=== PATIENT | male | born 1985 | race Caucasian/White ===

== ENCOUNTER 2017-02-18 00:42 | Inpatient (IN) | payer OTHER ==
[~2017-02-18] VITALS: Ht 177.8 cm; Wt 84.0 kg
[2017-02-18 00:46] VITALS: Ht 177.8 cm; Wt 84.0 kg
[2017-02-18 02:05] LABS: URINE BLOOD (Dip) POC Negative (NEGATIVE)
[2017-02-18] MEDS ORDERED: SOD CHLORIDE 0.9% 1,000 ML IV STA (02:05)
[2017-02-18] MEDS ORDERED: morphine 2 MG INJ IV STA (02:05)
[2017-02-18] MEDS ORDERED: ONDANSETRON 4 MG INJ IV STA (02:05)
[2017-02-18 02:21] LABS: ADD SCAN DIFF NO
[2017-02-18 02:24] LABS: BASOPHILS % 0.3 % (0.0-2.0); EOSINOPHILS # 0.1 10^3/ul (0.0-0.5); EOSINOPHILS % 0.6 % (0.0-7.0); HEMATOCRIT 41.7 % (42.0-52.0); LYMPHOCYTES # 1.6 10^3/ul (0.8-2.9); MEAN CORPUSCULAR HEMOGLOBIN 27.2 pg (29.0-33.0); MEAN CORPUSCULAR HGB CONC 33.6 g/dl (32.0-37.0); MEAN CORPUSCULAR VOLUME 81.1 fl (82.0-101.0); MEAN PLATELET VOLUME 10.5 fl (7.4-10.4); MONOCYTE # 0.8 10^3/ul (0.3-0.9); MONOCYTES % 5.7 % (0.0-11.0); NEUTROPHIL # 11.8 10^3/ul (1.6-7.5); NEUTROPHILS % 82.1 % (39.0-77.0); PLATELET COUNT 248 10^3/UL (140-415); RED BLOOD COUNT 5.14 10^6/ul (4.70-6.10); RED CELL DISTRIBUTION WIDTH 11.9 % (11.5-14.5); WHITE BLOOD COUNT 14.4 10^3/ul (4.8-10.8)
[2017-02-18 02:34] LABS: ADD UMIC YES; UR ASCORBIC ACID NEGATIVE (NEGATIVE); UR BILIRUBIN (Dip) NEGATIVE (NEGATIVE); UR BLOOD (Dip) NEGATIVE (NEGATIVE); UR CLARITY CLEAR (CLEAR); UR COLOR YELLOW (YELLOW); UR GLUCOSE (Dip) NEGATIVE (NEGATIVE); UR KETONES (Dip) 1+ mg/dL (NEGATIVE); UR LEUKOCYTE ESTERASE (Dip) NEGATIVE Leu/ul (NEGATIVE); UR NITRITE (Dip) NEGATIVE (NEGATIVE); UR RBC 1 /HPF (0-5); UR SPECIFIC GRAVITY (Dip) 1.021 (1.003-1.030); UR TOTAL PROTEIN (Dip) 1+ mg/dl (NEGATIVE); UR UROBILINOGEN (Dip) NEGATIVE (NEGATIVE)
[2017-02-18 02:44] LABS: ALBUMIN 5.1 g/dl (3.3-4.9); ALBUMIN/GLOBULIN RATIO 1.82; BILIRUBIN,INDIRECT 1.2 mg/dl (0-1.1); BILIRUBIN,TOTAL 1.2 mg/dl (0.2-1.3); CALCIUM 9.7 mg/dl (8.4-10.2); CREATININE 0.85 mg/dl (0.61-1.24); POTASSIUM 4.2 mmol/L (3.5-5.1); TOTAL PROTEIN 7.9 g/dl (6.1-8.1)
[2017-02-18] MEDS ORDERED: morphine 4 MG/ML VIAL IV STA ×2 (03:41→06:14)
--- NOTE | 2017-02-18 03:42 | RADRPT ---
PROCEDURE: XR Abdomen. CLINICAL INDICATION: Abdominal pain TECHNIQUE: Upright and supine abdominal x-rays were obtained. COMPARISON: None. FINDINGS: The bowel gas pattern is normal. There is no evidence of obstruction. There are no definite air-flui d levels. There are no abnormal calcifications overlying the urinary tracts. The soft tissues are unremarkable. There is no free intraperitoneal air. The osseus structures are unremarkable. RPTAT: AA IMPRESSION: Unremarkable abdomen radiographs. .Huang Valiente MD, MD Date Time Electronically viewed and signed by .Huang Valiente MD, MD on 02/18/2017 03:41 .S/
--- NOTE | 2017-02-18 05:42 | RADRPT ---
PROCEDURE: CT ABDOMEN/PELVIS WITHOUT CONTRAST CLINICAL INDICATION: 31-year-old male with periumbilical abdominal pain. TECHNIQUE: The study was performed utilizing a GE LETSGRO[employer]peed VCT 64-slice CT scanner. Direct axia l sections were obtained through the abdomen and pelvis without the use of intravenous contrast mate rial. Sagittal and coronal reformations were obtained. One or more of the following dose reduction t echniques were utilized: automated exposure control, adjustment of the mA and/or kV according to pat ient's size or use of iterative reconstruction technique. The images were reviewed on a PACS workst at[employer]Crossing. CTD/vol = 12.7 mGy; Total Exam DLP = 796.9 mGy-cm. COMPARISON: None. FINDINGS: There is trace bibasilar subsegmental atelectasis. There is no evidence for significant pleural eff usion. The liver has a normal size and contour without focal areas of abnormal density. No intrahep atic nor extrahepatic biliary ductal dilatation is seen. The gallbladder demonstrates no wall thicke glen nor pericholecystic fluid. No biliary stones are evident. The pancreas is without areas of abno rmal attenuation. The spleen is identified and has a normal size without abnormal density. The adre nal glands are unremarkable. The kidneys are without abnormal density. No hydroureteronephrosis nor nephroureterolithiasis is evident. The urinary bladder contains urine. There is no evidence for brenda l obstruction. The appendix is diffusely thickened measuring 9 mm with minimal periappendiceal infl ammatory changes suggestive of early acute appendicitis. There is no significant free fluid. There are small bilateral inguinal hernias containing fat. The aortoiliac vessels are without aneurysmal dilatation. The osseous structures are intact. IMPRESSION: 1. Diffusely thickened appendix measuring 9 mm with minimal surrounding inflammatory changes most s uggestive of early acute appendicitis. 2. Small bilateral inguinal hernias containing fat. CRITICAL RESULTS: A call report was made to [facility] ER Dr. Kinney on February 18, 2017 at 05:36 a.m. .Christopher Velazquez MD, MD Date Time Electronically viewed and signed by .Christopher Velazquez MD, MD on 02/18/2017 05:42 .Saurabh
--- NOTE | 2017-02-18 05:46 | ERA ---
ER Documentation Chief Complaint Date/Time DATE: 02/18/17 TIME: 05:42 Chief Complaint lower abd pain since 8 hours ago HPI This 31-year-old male presents for periumbilical abdominal pain and spread to his lower quadrant about 8 hours ago. He has had some nausea and an episode of vomiting. He has never had pain like this before. He has had chills but denies fevers. Denies diarrhea. Has no history of abdominal surgery and is otherwise healthy. ROS All systems reviewed and are negative except as per history of present illness. Allergies Allergies: Coded Allergies: No Known Allergy (Unverified , 02/18/17) PMhx/Soc Medical and Surgical Hx: pt denies Medical Hx, pt denies Surgical Hx Hx Alcohol Use: No Hx Substance Use: No Hx Tobacco Use: Yes Smoking Status: Current some day smoker Physical Exam Vitals Vital Signs Date Time Temp Pulse Resp B/P Pulse Ox O2 Delivery O2 Flow Rate FiO2 02/18/17 03:11 70 16 115/97 100 Room Air 02/18/17 00:46 98.3 99 20 131/72 98 Physical Exam Const: [] Mild distress, appears uncomfortable Head: Atraumatic Eyes: Normal Conjunctiva ENT: Normal External Ears, Nose and Mouth. Neck: Full range of motion..~ No meningismus. Resp: Clear to auscultation bilaterally Cardio: Regular rate and rhythm, no murmurs Abd: Soft, moderate periumbilical tenderness with mild voluntary guarding, moderate right lower quadrant tenderness, non distended. Normal bowel sounds Skin: No petechiae or rashes Back: No midline or flank tenderness Ext: No cyanosis, or edema Neur: Awake and alert and oriented 3, no focal deficits Psych: Normal Mood and Affect Result Diagram: 02/18/17 0210 02/18/17 0210 Results 24 hrs Laboratory Tests Test 02/18/17 02:00 02/18/17 02:08 02/18/17 02:10 Urine Color YELLOW Urine Clarity CLEAR Urine pH 9.0 Urine Specific [place] 1.021 Urine Ketones 1+mg/dL Urine Nitrite NEGATIVEmg/dL Urine Bilirubin NEGATIVEmg/dL Urine Urobilinogen NEGATIVEmg/dL Urine Leukocyte Esterase NEGATIVELeu/ul Urine Microscopic RBC 1/HPF Urine Microscopic WBC 1/HPF Urine Hemoglobin NEGATIVEmg/dL Urine Glucose NEGATIVEmg/dL Urine Total Protein 1+mg/dl Bedside Urine pH (LAB) >=9.0 Bedside Urine Protein (LAB) 3+ Bedside Urine Glucose (UA) Negative Bedside Urine Ketones (LAB) 2+ Bedside Urine Blood Negative Bedside Urine Nitrite (LAB) Negative Bedside Urine Leukocyte Esterase (L Negative White Blood Count 14.410^3/ul Red Blood Count 5.1410^6/ul Hemoglobin 14.0g/dl Hematocrit 41.7% Mean Corpuscular Volume 81.1fl Mean Corpuscular Hemoglobin 27.2pg Mean Corpuscular Hemoglobin Concent 33.6g/dl Red Cell Distribution Width 11.9% Platelet Count 05536^3/UL Mean Platelet Volume 10.5fl Neutrophils % 82.1% Lymphocytes % 11.0% Monocytes % 5.7% Eosinophils % 0.6% Basophils % 0.3% Nucleated Red Blood Cells % 0.0/100WBC Neutrophils # 11.810^3/ul Lymphocytes # 1.610^3/ul Monocytes # 0.810^3/ul Eosinophils # 0.110^3/ul Basophils # 0.010^3/ul Nucleated Red Blood Cells # 0.010^3/ul Sodium Level 140mmol/L Potassium Level 4.2mmol/L Chloride Level 101mmol/L Carbon Dioxide Level 27mmol/L Anion Gap 16 Blood Urea Nitrogen 14mg/dl Creatinine 0.85mg/dl Glucose Level 120mg/dl Calcium Level 9.7mg/dl Total Bilirubin 1.2mg/dl Direct Bilirubin 0.00mg/dl Indirect Bilirubin 1.2mg/dl Aspartate Amino Transf (AST/SGOT) 139IU/L Alanine Aminotransferase (ALT/SGPT) 111IU/L Alkaline Phosphatase 77IU/L Total Protein 7.9g/dl Albumin 5.1g/dl Globulin 2.80g/dl Albumin/Globulin Ratio 1.82 Lipase 81U/L Current Medications Medications (Trade) Dose Ordered Sig/Miriam Route PRN Reason Start Time Stop Time Status Last Admin Dose Admin Sodium Chloride (NS) 1,000 ml @ 1,000 mls/hr Q1H STAT IV 02/18/17 02:05 02/18/17 03:04 DC 02/18/17 02:17 Morphine Sulfate (morphine) 2 mg ONCE STAT IV 02/18/17 02:05 02/18/17 02:07 DC 02/18/17 02:17 Ondansetron HCl (Zofran Inj) 4 mg ONCE STAT IV 02/18/17 02:05 02/18/17 02:07 DC 02/18/17 02:18 Morphine Sulfate 4 mg 4 mg ONCE STAT IV 02/18/17 03:41 02/18/17 03:42 DC 02/18/17 04:13 Piperacillin Sod/ Tazobactam Sod (Zosyn 3.375gm/ 100 ml (Pmx)) 100 ml @ 200 mls/hr ONCE ONCE IVPB 02/18/17 06:00 02/18/17 06:29 Procedures/MDM 31-year-old male with acute appendicitis. Hydrated with 2 L of normal saline. Treated with morphine 2 doses in order to control his pain. Also given Zofran which helped reduce his nausea but not completely relieve it. Does have leukocytosis without fever or signs of sepsis. 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 Mild increased LFTs. Patient will be admitted to the medical surgical floor for further management. Spoke with Dr. Rivas who will be managed in the case surgically. CT abdomen pelvis interpretation dilated thickened appendix 9 mm with mild surrounding inflammatory changes consistent with early appendicitis. No intestinal obstruction, no free air, no fractures mild Departure Diagnosis: Primary Impression: Acute appendicitis Condition: Serious JACINTO CASTRO DO Feb 18, 2017 05:46
[2017-02-18] MEDS ORDERED: PIPER-TAZO 3.375 GM IV (PMX) 100 ML IVPB ONE (06:00)
[2017-02-18] MEDS ORDERED: ONDANSETRON 4 MG INJ IV PRN (06:30)
[2017-02-18] MEDS ORDERED: ACETAMINOPHEN 325 MG TAB PO PRN ×2 (06:30→08:30)
[2017-02-18] MEDS ORDERED: SOD CHLORIDE 0.9% 1,000 ML IV ONE (06:30)
[2017-02-18 07:20] VITALS: TEMP 99.4
[2017-02-18 07:29] LABS: INR 0.87; PROTIME 11.8 Sec (12.2-14.2); PT RATIO 0.9
[2017-02-18 07:30] LABS: PARTIAL THROMBOPLASTIN TIME 23.9 Sec (25.0-35.0)
[2017-02-18] MEDS ORDERED: HYDROmorphONE 1 MG/ML SYG IV PRN (08:30)
[2017-02-18] MEDS ORDERED: NACL 0.9% 3 ML SYG IV SCH (08:30)
[2017-02-18] MEDS ORDERED: DOCUSATE SODIUM 100 MG CAP PO PRN (08:30)
[2017-02-18 08:35] VITALS: BP 109/61; PULSE 80; RESP 20
--- NOTE | 2017-02-18 08:36 | HP ---
Date/Time of Note Date/Time of Note DATE: 02/18/17 TIME: 08:30 Assessment/Plan VTE Prophylaxis VTE Prophylaxis Intervention: other Assessment/Plan Problems: (1) Abdominal pain Status: Acute Comment: He has been seen in surgical consultation by Dr. Bonner. Dr. Bonner feels that based on the presentation information that this is not absolutely classical for acute appendicitis. He wishes to observe the patient. I am in agreement with that and he will be admitted to the hospital and observed overnight. Qualifiers: Abdominal location: right lower quadrant Qualified Code: R10.31 - Right lower quadrant abdominal pain (2) Abnormal finding on urinalysis Status: Acute Comment: Or findings of protein on the urinalysis. I will simply repeat urinalysis to make sure that there is not a red whitlock. If the proteinuria persists and he will need a 24-hour urine for total protein and possibly need additional evaluation. This would be unrelated to the chief complaint of brought him into the hospital. (3) Elevated liver enzymes Status: Acute Comment: There is no prior history of this. It may represent the issue that brought him into the hospital is quite possible he has mesenteric adenitis. However we will check an acute hepatitis panel (4) Bilateral inguinal hernia Status: Chronic Comment: These were small and noted on the CT scan of the abdomen. They do not need intervention at this moment Qualifiers: Obstruction and gangrene presence: without obstruction or gangrene Recurrence: not specified as recurrent Qualified Code: K40.20 - Bilateral inguinal hernia without obstruction or gangrene, recurrence not specified HPI/ROS Admit Date/Time Admit Date/Time 02/18/2017 Hx of Present Illness Baron 31-year-old Faro[place] gentleman came into the emergency room with complaint of abdominal pain he generally has been in good health, however he does note intermittent bouts of abdominal pain that have been short-lived roughly half an hour. He was in his usual state of health and had eaten part of a dinner meal when he had the onset of abdominal pain which located down to the right lower quadrant. Ultimately because it did not relent he presented to the emergency room. He was treated with morphine 2 there the last being the time being 4-1/2 hours before I evaluated the patient. He denies any fevers chills or sweats. Denied any nausea or vomiting. He has no history of melena bright red blood per rectum denies any symptoms consistent with inflammatory bowel disease. There is no known specific history of inflammatory bowel disease in the family. He is not routinely under medical care and is otherwise in good health. ROS Constitutional: no complaints (No fevers chills or sweats) Eyes: no complaints ENT: no complaints Respiratory: no complaints Cardiovascular: no complaints Gastrointestinal: pain (This has resolved) Genitourinary: no complaints Musculoskeletal: no complaints Skin: no complaints Neurologic: no complaints Endocrine: no complaints Lymphatic: no complaints Psychological: no complaints PMH/Family/Social Past Medical History Medical History: no pertinent history (Otherwise in good health with some possible allergic rhinitis. Has occasional headaches which are not consistent with migraine) Past Surgical History Past Surgical Hx: no surgical history Family History Significant Family History: diabetes, hypertension Social History Born in [facility] lives in [facility] for 3 and half years. for 3 years. Has a bachelor's degree. Lives with his spouse. Alcohol Use: occasionally Smoking Status: Current some day smoker Drug Use: none Exam/Review of Systems Vital Signs Vitals Vital Signs Date Time Temp Pulse Resp B/P Pulse Ox O2 Delivery O2 Flow Rate FiO2 02/18/17 07:20 99.4 94 18 112/76 100 Room Air Exam Constitutional: alert, oriented Psych: nl mood/affect, no complaints Head: atraumatic, normocephalic Eyes: EOMI, nl conjunctiva, nl lids, nl sclera ENMT: mucosa pink and moist, nl external ears & nose, nl lips & teeth, nl nasal mucosa & septum Neck: non-tender, supple Respiratory: clear to auscultation, normal air movement Cardiovascular: nl pulses, regular rate and rhythm Gastrointestinal: nl liver, spleen, non-tender (Please note he has no tenderness at all at this time. 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
--- NOTE | 2017-02-18 09:11 | CONS ---
[facility] INITIAL INPATIENT CONSULTATION NOTE DATE OF CONSULTATION: 02/18/2017 PLACE OF SERVICE: [facility] preoperative area. ASSESSMENT AND PLAN: A very pleasant 31-year-old gentleman with comorbidities of BMI 26.6, daily cigarette smoker, history of reported gallbladder polyp, and bilateral small fat containing inguinal hernias presenting with abdominal pain of unclear etiology in the setting of a vague history of bloating, especially after eating. The patient does not have classic picture of acute appendicitis, and if anything, this would be extremely early appendicitis. Given his discordance between clinical exam and the relative minor findings on the CT scan , I recommended that we change our plans from emergency surgery to remove the appendix to that of careful observation in house overnight and possible surgery if the patient has more clear signs of acute appendicitis. The risk to the patient is certainly low with this approach, and we are still carefully monitoring him in the hospital. We may also want to consider involving other specialties such as gastroenterology to evaluate him for possible inflammatory bowel disease, although his workup can certainly be done as an outpatient as well. 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 I answered all of their questions to the best of my ability, and I believe that they understood and agreed with the plans. With above assessment, I have recommended the followin. Keep in house. 2. Careful monitoring of vital signs and I's and O's. 3. Okay for patient to have a regular diet for now. 4. Check labs in a.m. 5. Consider gastroenterology consultation 6. Possible need for surgery if the patient does not improve. Thank you again for allowing us to participate in the care of this very pleasant gentleman and his wonderful family. If there are any questions, please feel free to contact me at [phone]. UPDATED CLINICAL SUMMARY: A very pleasant 31-year-old young gentleman with comorbidity of BMI 26.6 admitted through the emergency department at [facility] on 02/18/2017 with suspicion of acute appendicitis. COMORBIDITIES: 1. BMI 26.6. 2. History of abdominal bloating. 3. Current smoker, daily. 4. History of gallbladder polyps, evaluated per patient's report by a physician and was told not to need any intervention. DATE OF ADMISSION: 02/18/2017 HISTORY OF PRESENT ILLNESS: The patient is a very pleasant 31-year-old gentleman with above-mentioned comorbidities for whom we were contacted through the emergency department early this morning regarding concerns for acute appendicitis. He had presented with a few hour history of abdominal pain which he described as a diffuse lower abdominal discomfort associated with a bit of nausea and 2 episodes of nonbloody vomiting but no localization to right or left and no radiation. No fevers or chills. He did mention having diarrhea yesterday. He also has a history of abdominal bloating which is exacerbated every few weeks. There is also a history of diarrhea and bloating. There is a history of bloating issues with family without any obvious or known diagnosis of Crohn's disease or ulcerative colitis. The patient had an afebrile state in the emergency department, and his vital signs were otherwise stable. Showed a white blood cell count of 14.4 with a neutrophil percentage of 82.1%. CT scan of abdomen and pelvis on 02/18/2017 was obtained which showed diffusely thickened appendix measuring 9 mm with minimal surrounding inflammatory changes most suggestive of early acute appendicitis and small bilateral inguinal hernias containing fat. During my examination of the patient, and the patient did not have any abdominal pain, and he had received 2 doses of morphine last night and none for the last number of hours. He had no other major complaints. ALLERGIES: NO KNOWN DRUG ALLERGIES. MEDICATIONS: None at home. SOCIAL HISTORY: The patient is and lives with his . 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 FAMILY HISTORY: No mention of major medical, surgical, or oncologic problems in the family other than the above-mentioned, vague symptoms of bloating after eating. REVIEW OF SYSTEMS: Other than the above-mentioned, there are no other pertinent positives or pertinent negatives in a complete 14-point review of systems. PHYSICAL EXAMINATION: GENERAL: The patient appears to be a very pleasant gentleman of /[place] descent, appearing stated age, lying in bed comfortably and in no acute distress. BMI is 26.6. VITAL SIGNS: Temperature 99.4, blood pressure 112/76, pulse 94, respiratory rate 18, pulse oximetry 100% on room air. HEENT: Normocephalic and atraumatic. Extraocular muscles and hearing are grossly intact bilaterally and symmetrically. Sclerae are nonicteric. Oral cavity is clear; oral mucosa appeared to be pink and moist. Dentition: fair. NECK: Supple. There is no lymphadenopathy or JVD. There is no submental, submandibular or supraclavicular lymphadenopathy. CHEST: Rises symmetrically with each breath; patient is breathing comfortably. There are no audible wheezes, rales or rhonchi on the gross exam. HEART: Pulse is regular and palpable on the right wrist. Capillary refill was normal. Carotid pulses are palpable bilaterally and symmetrically in the neck. EXTREMITIES: Lower extremities contain no pitting edema around the ankles bilaterally and symmetrically. ABDOMEN: Soft, nondistended, and nontender. Deep palpation in the right lower quadrant did not elicit any tenderness. There is no evidence of organomegaly, caput medusae, engorged subcutaneous veins, or ascites. There are no peritoneal signs or guarding. SKIN: Appears to be pink and feels warm to touch. NEUROLOGIC: Awake, alert, and follows commands appropriately. LABORATORY DATA: White blood cell count 14.4, hemoglobin 14, platelets 248. Electrolytes are normal, creatinine 0.85, CO2 27, total bilirubin 1.2, AST 139, ALT 111, alkaline phosphatase 77, albumin 5.1, lipase 81. INR 0.87. Urinalysis showed no nitrite and no leukocyte esterase. IMAGING: Abdominal x-ray showed unremarkable findings. CT scan of the abdomen and pelvis was reviewed above. Note that I personally reviewed all the available and pertinent images, and I agree in general with their overall reported findings. Dictated By: SERGIO MILLAN/RIAZ Conf#: [id number] DID#: [id number] MTDD
[2017-02-18] MEDS: FAMOTIDINE 20 MG TAB PO SCH ×2 (09:12→21:12)
[2017-02-18 13:12] LABS: HAAIG REFLEX REFLEX FILED
[2017-02-18] MEDS: PIPER-TAZO 3.375 GM IV (PMX) 100 ML IVPB SCH ×2 (13:47→21:12)
[2017-02-18 13:51] LABS: ADD SCAN DIFF NO
[2017-02-18 14:05] LABS: BASOPHILS % 0.4 % (0.0-2.0); EOSINOPHILS # 0.1 10^3/ul (0.0-0.5); EOSINOPHILS % 1.4 % (0.0-7.0); HEMATOCRIT 39.1 % (42.0-52.0); HEMOGLOBIN 12.6 g/dl (14.0-18.0); LYMPHOCYTES # 2.4 10^3/ul (0.8-2.9); LYMPHOCYTES % 25.1 % (15.0-51.0); MEAN CORPUSCULAR HEMOGLOBIN 26.3 pg (29.0-33.0); MEAN CORPUSCULAR HGB CONC 32.2 g/dl (32.0-37.0); MEAN CORPUSCULAR VOLUME 81.5 fl (82.0-101.0); MEAN PLATELET VOLUME 10.6 fl (7.4-10.4); MONOCYTE # 0.7 10^3/ul (0.3-0.9); MONOCYTES % 7.8 % (0.0-11.0); NEUTROPHIL # 6.2 10^3/ul (1.6-7.5); NEUTROPHILS % 65.1 % (39.0-77.0); PLATELET COUNT 227 10^3/UL (140-415); RED CELL DISTRIBUTION WIDTH 12.2 % (11.5-14.5); WHITE BLOOD COUNT 9.5 10^3/ul (4.8-10.8)
[2017-02-18 14:12] LABS: HEPATITIS B CORE ANTIBODY REACTIVE (NEGATIVE)
[2017-02-18] MEDS: DEXTROSE 5%-LR 1,000 ML IV SCH (15:20)
[2017-02-18 16:02] LABS: ADD UMIC NO; UR ASCORBIC ACID NEGATIVE (NEGATIVE); UR BILIRUBIN (Dip) NEGATIVE (NEGATIVE); UR BLOOD (Dip) NEGATIVE (NEGATIVE); UR CLARITY CLEAR (CLEAR); UR COLOR YELLOW (YELLOW); UR GLUCOSE (Dip) NEGATIVE (NEGATIVE); UR KETONES (Dip) NEGATIVE (NEGATIVE); UR LEUKOCYTE ESTERASE (Dip) NEGATIVE Leu/ul (NEGATIVE); UR NITRITE (Dip) NEGATIVE (NEGATIVE); UR SPECIFIC GRAVITY (Dip) 1.015 (1.003-1.030); UR TOTAL PROTEIN (Dip) NEGATIVE (NEGATIVE); UR UROBILINOGEN (Dip) NEGATIVE (NEGATIVE)
[2017-02-18 18:58] VITALS: BP 108/62; RESP 16
[2017-02-19] MEDS: DEXTROSE 5%-LR 1,000 ML IV SCH ×2 (04:20→17:40)
[2017-02-19] MEDS: PIPER-TAZO 3.375 GM IV (PMX) 100 ML IVPB SCH ×2 (05:12→13:36)
[2017-02-19 05:23] LABS: ADD SCAN DIFF NO
[2017-02-19 05:28] LABS: BASOPHIL # 0.1 10^3/ul (0.0-0.1); BASOPHILS % 0.7 % (0.0-2.0); EOSINOPHILS # 0.2 10^3/ul (0.0-0.5); EOSINOPHILS % 2.7 % (0.0-7.0); HEMATOCRIT 38.3 % (42.0-52.0); HEMOGLOBIN 12.3 g/dl (14.0-18.0); LYMPHOCYTES # 2.6 10^3/ul (0.8-2.9); LYMPHOCYTES % 36.4 % (15.0-51.0); MEAN CORPUSCULAR HEMOGLOBIN 26.6 pg (29.0-33.0); MEAN CORPUSCULAR HGB CONC 32.1 g/dl (32.0-37.0); MEAN CORPUSCULAR VOLUME 82.7 fl (82.0-101.0); MONOCYTE # 0.6 10^3/ul (0.3-0.9); MONOCYTES % 8.8 % (0.0-11.0); NEUTROPHIL # 3.6 10^3/ul (1.6-7.5); NEUTROPHILS % 51.3 % (39.0-77.0); PLATELET COUNT 204 10^3/UL (140-415); RED BLOOD COUNT 4.63 10^6/ul (4.70-6.10); RED CELL DISTRIBUTION WIDTH 12.5 % (11.5-14.5)
[2017-02-19 05:49] LABS: ALBUMIN 4.2 g/dl (3.3-4.9); ALBUMIN/GLOBULIN RATIO 1.75; BILIRUBIN,INDIRECT 1.4 mg/dl (0-1.1); BILIRUBIN,TOTAL 1.4 mg/dl (0.2-1.3); CALCIUM 9.3 mg/dl (8.4-10.2); CREATININE 0.87 mg/dl (0.61-1.24); TOTAL PROTEIN 6.6 g/dl (6.1-8.1)
[2017-02-19 07:58] VITALS: BP 97/55; RESP 16
[2017-02-19] MEDS: FAMOTIDINE 20 MG TAB PO SCH ×2 (08:34→20:28)
--- NOTE | 2017-02-19 11:37 | PDOCDIS ---
Discharge Instructions DIAGNOSIS Discharge Diagnosis Abdominal Pain CONDITION Patient Condition: Good HOME CARE INSTRUCTIONS: Diet Instructions: Regular ACTIVITY: Activity Restrictions: Slowly Increase Activity Rest between Activity Avoid heavy lifting Bathing Restrictions: Shower FOLLOW UP/APPOINTMENTS Follow-up Plan Follow-up with primary care physician as outpatient Follow up with general surgery as outpatient HOLGER LASSITER MD Feb 19, 2017 11:36
[2017-02-19] MEDS ORDERED: FAMO20TA18 PO (11:38)
[2017-02-19] MEDS ORDERED: CEPH500C PO (11:38)
--- NOTE | 2017-02-19 12:49 | PN ---
Date/Time of Note Date/Time of Note DATE: 02/19/17 TIME: 12:46 Assessment/Plan Lines/Catheters IV Catheter Type (from Nrs): Peripheral IV Assessment/Plan Assessment/Plan [facility] Progress Note Date of Service: 02/19/17 Today's Impression & Plan: Overall stable. No major abdominal pain and only bloating as the main complaint. No indication for acute surgical intervention. Since no major surgical issues, will sign off the official chart, but will cont to follow from periphery. With above assessment, I've recommended the following for today: 1. Agree with RUQ US 2. Consider GI consultation 3. Please call me if any acute changes in condition or new surgical issues identified Thank you again for your great care of this very pleasant patient and wonderful family. If there are any questions, please feel free to call me at [phone]. TOTAL VISIT TIME: 20 minutes of which more than half was spent in [id number] discussion with the patient, possibly including family, as well as coordination of care between multiple physicians and providers. Disclaimer: Inadvertent spelling or grammatical errors are likely due to EHR/ dictation software use and do not reflect on the overall quality of patient care. Updated Clinical Summary: A very pleasant 31-year-old young gentleman with comorbidity of BMI 26.6 admitted through the emergency department at [facility] on with suspicion of acute appendicitis. No obvious evidence of acute appendicitis found. COMORBIDITIES: 1. BMI 26.6. 2. History of abdominal bloating. 3. Current smoker, daily. 4. History of gallbladder polyps, evaluated per patient's report by a physician and was told not to need any intervention. Subjective: No major events or complaints; no abd pain and only bloating as the main complaint; no n/v/d; no sob or cp; + flatus; - BM; minimal activity Objective: Vitals: See below Exam: GENERAL: On exam, the patient was laying in bed and appeared to be comfortable and in no acute distress. ABDOMEN: Soft, nontender and nondistended. There are no peritoneal signs or guarding. SKIN: Skin appears to be pink and feels warm to touch. NEUROLOGIC: Patient is awake, alert, and follows commands appropriately. Exam/Review of Systems Vital Signs Vitals Vital Signs Date Time Temp Pulse Resp B/P Pulse Ox O2 Delivery O2 Flow Rate FiO2 02/19/17 07:58 98.4 65 16 97/55 96 02/18/17 08:35 Room Air Intake and Output 02/18/17 02/18/17 02/19/17 15:00 23:00 07:00 Intake Total 100 ml 250 ml 1100 ml Output Total 1000 ml 900 ml Balance 100 ml -750 ml 200 ml Results Result Diagram: 02/19/17 0442 02/19/17 0442 SERGIO WEEMS M.D. Feb 19, 2017 12:49
--- NOTE | 2017-02-19 17:42 | RADRPT ---
PROCEDURE: US Abdomen and Retroperitoneum. CLINICAL INDICATION: Abdominal pain. TECHNIQUE: Multiple real-time longitudinal and transverse images were acquired of the patient's ab domen and retroperitoneum utilizing a curved array transducer. COMPARISON: No prior studies are available for comparison. FINDINGS: The liver is normal in size and normal in echogenicity. The liver has a normal smooth surface. Ther e is no focal hepatic lesion. Color Doppler and pulsed Doppler sonography demonstrate normal antegra de flow in the portal vein. Small polyps are present in the gallbladder neck measuring 0.4 cm and 0.3 cm. There are no gallston es in the gallbladder and there is no gallbladder wall thickening or fluid around the gallbladder. The bile ducts are normal with the common bile duct measuring 4.4 mm in diameter. The spleen is normal in size. There is no focal splenic lesion. The pancreas is partially seen and is unremarkable. There is no free fluid. The right kidney measures 11.4 cm and the left kidney measures 11.6 cm. There is no solid renal mass. There is a benign cyst superiorly in the left kidney measuring 1.2 cm . There is no hydronephrosis or calculus. The abdominal aorta is not dilated. The inferior vena cava is unremarkable. IMPRESSION: 1. Small polyps in the gallbladder neck measuring 0.4 cm and 0.3 cm. Follow-up ultrasound in 6 mon ths advised. 2. No gallstones or evidence of cholecystitis. 3. Benign left renal cyst. 4. Otherwise normal ultrasound abdomen and retroperitoneum. RPTAT: QQ .Kris Dhaliwal MD, MD Date Time Electronically viewed and signed by .Kris Dhaliwal MD, on 02/19/2017 17:42 .R/
[2017-02-19 19:16] VITALS: BP 120/76; RESP 16
--- NOTE | 2017-02-19 19:33 | CONS ---
Date/Time of Note Date/Time of Note DATE: 02/19/17 TIME: 19:25 Assessment/Plan Assessment/Plan Additional Assessment/Plan Assessment: * Mild abnormality liver function tests * Positive hepatitis B core antibody total/will request IgM to assess acuity * At least EtOH abuse moderate * Indirect hyperbilirubinemia rule out Gilbert's syndrome * Gallbladder polyps not clinically significant * Enlarged appendix on imaging/no clinical evidence of appendicitis Plan: * Obtain hepatitis B core antibody IgM * Abstain from alcohol * Monitor liver function tests in 1 month * Avoid hepatotoxins i.e. Tylenol, statins etc. Consultation Date/Type/Reason Admit Date/Time 02/18/2017 Date of Consultation: Feb 19, 2017 Reason for Consultation * Abnormal liver function tests Hx of Present Illness 31-year-old anxious male hospitalized after presenting to the emergency room with significant lower abdominal pain and findings of a enlarged and thickened appendix on CT. Patient was evaluated by Dr. Bonner from the surgical point of view and given the fact that his clinical picture did not fit acute appendicitis no surgery was undertaken. The patient reports that his abdominal pain has completely subsided. A CT and ultrasound also disclose evidence of small gallbladder polyps he is also been found to have slight abnormality liver function test with bilirubin of 1.2 of which all is indirect bilirubin. AST ALT were in the 100 range and have come down slightly. The patient denies risk factors for hepatitis but he is hepatitis serology was positive for hepatitis B core antibody unfortunately IgM antibody has not been assessed. Patient also admits to drinking on a weekly basis several shots of tequila or vodka and also beer throughout the week. At present the patient is comfortable intubating he wishes to go home tonight. I have advised him to complete the blood work which will required further drawing for hepatitis B core IgM antibody and he will also need to set up an appointment with the physician in the outside to be responsible to follow this and I have strongly advised him to discontinue alcohol completely until the situation is clarified. Constitutional: improved, no complaints Eyes: no complaints ENT: no complaints Respiratory: no complaints Cardiovascular: no complaints Gastrointestinal: pain (This has resolved) Genitourinary: no complaints Musculoskeletal: no complaints Skin: no complaints Neurologic: no complaints Endocrine: no complaints Lymphatic: no complaints Psychological: nl mood/affect, no complaints Immunologic: no complaints Past Medical History Medical History: other (Gallbladder polyp) Past Surgical History Past Surgical Hx: no surgical history Family History Significant Family History: no pertinent family hx Social History Alcohol Use: occasionally Smoking Status: Current some day smoker Drug Use: none Exam/Review of Systems Vital Signs Vitals Vital Signs Date Time Temp Pulse Resp B/P Pulse Ox O2 Delivery O2 Flow Rate FiO2 02/19/17 19:16 98.7 60 16 120/76 97 02/18/17 08:35 Room Air Intake and Output 02/18/17 02/18/17 02/19/17 15:00 23:00 07:00 Intake Total 100 ml 250 ml 1100 ml Output Total 1000 ml 900 ml Balance 100 ml -750 ml 200 ml Exam Constitutional: alert, oriented, well developed Psych: nl mood/affect, no complaints Head: atraumatic, normocephalic Eyes: EOMI, PERRL, nl conjunctiva, nl lids, nl sclera ENMT: nl external ears & nose, nl lips & teeth, nl nasal mucosa & septum Neck: non-tender, supple Respiratory: clear to auscultation, normal air movement Cardiovascular: nl pulses, regular rate and rhythm Gastrointestinal: nl liver, spleen, non-tender, soft Musculoskeletal: nl extremities to inspection Extremities: normal pulses Skin: nl turgor, No rash or lesions Lymph: nl lymph nodes Results Result Diagram: 02/19/1744102/19/17441 Results 24 hrs Laboratory Tests Test 02/19/17 04:42 White Blood Count 7.0 # Red Blood Count 4.63 L Hemoglobin 12.3 L Hematocrit 38.3 L Mean Corpuscular Volume 82.7 Mean Corpuscular Hemoglobin 26.6 L Mean Corpuscular Hemoglobin Concent 32.1 Red Cell Distribution Width 12.5 Platelet Count 204 Mean Platelet Volume 11.0 H Neutrophils % 51.3 Lymphocytes % 36.4 Monocytes % 8.8 Eosinophils % 2.7 Basophils % 0.7 Nucleated Red Blood Cells % 0.0 Neutrophils # 3.6 Lymphocytes # 2.6 Monocytes # 0.6 Eosinophils # 0.2 Basophils # 0.1 Nucleated Red Blood Cells # 0.0 Erythrocyte Sedimentation Rate 15 Sodium Level 144 Potassium Level 4.0 Chloride Level 107 Carbon Dioxide Level 26 Anion Gap 15 Blood Urea Nitrogen 10 Creatinine 0.87 Glucose Level 90 Calcium Level 9.3 Total Bilirubin 1.4 H Direct Bilirubin 0.00 Indirect Bilirubin 1.4 H Aspartate Amino Transf (AST/SGOT) 81 H Alanine Aminotransferase (ALT/SGPT) 88 H Alkaline Phosphatase 61 Total Protein 6.6 # Albumin 4.2 Globulin 2.40 Albumin/Globulin Ratio 1.75 Thyroid Stimulating Hormone (TSH) 1.180 Medications Medications Current Medications Acetaminophen (Tylenol Tab) 650 mg Q6H PRN PO PAIN LEVEL 1-3 OR FEVER; Start at 08:30 Hydromorphone HCl (Dilaudid) 0.5 mg Q4H PRN IV SEVERE PAIN LEVEL 7-10; Start at 08:30 Docusate Sodium (Colace) 100 mg Q12H PRN PO CONSTIPATION Last administered on 06:03; Admin Dose 100 MG; Start 02/18/17 at 08:30 Famotidine 20 mg 20 mg Q12 PO Last administered on 02/19/17 08:34; Admin Dose 20 MG; Start 02/18/17 at 09:00 Piperacillin Sod/ Tazobactam Sod 100 ml @ 200 mls/hr Q8 IVPB Last administered on 02/19/17 13:36; Admin Dose 200 MLS/HR; Start 02/18/17 at 14:00 Dextrose/Lactated Ringer's (D5-Lr) 1,000 ml @ 75 mls/hr [id number] IV Last administered on 02/18/17 15:20; Admin Dose 75 MLS/HR; Start 02/18/17 at 15:00 WASHINGTON LACY MD Feb 19, 2017 19:33
[2017-02-20 07:27] VITALS: BP 104/62; RESP 19
[2017-02-20] MEDS: FAMOTIDINE 20 MG TAB PO SCH (09:00)
--- NOTE | 2017-02-20 12:27 | DS ---
Date/Time of Note Date/Time of Note DATE: 02/20/17 TIME: 12:20 Discharge Summary Admission/Discharge Info Admit Date/Time Feb 18, 2017 at 06:10 Discharge Date/Time 02/20/17 Discharge Diagnosis Abdominal Pain Patient Condition: Good Consults President General surgery Procedures None Hx of Present Illness Baron 31-year-old Taj[place] gentleman came into the emergency room with complaint of abdominal pain he generally has been in good health, however he does note intermittent bouts of abdominal pain that have been short-lived roughly half an hour. He was in his usual state of health and had eaten part of a dinner meal when he had the onset of abdominal pain which located down to the right lower quadrant. Ultimately because it did not relent he presented to the emergency room. He was treated with morphine 2 there the last being the time being 4-1/2 hours before I evaluated the patient. He denies any fevers chills or sweats. Denied any nausea or vomiting. He has no history of melena bright red blood per rectum denies any symptoms consistent with inflammatory bowel disease. There is no known specific history of inflammatory bowel disease in the family. He is not routinely under medical care and is otherwise in good health. Patient was admitted to [facility] was seen and evaluated by general surgery. General surgery evaluated the CT of the abdomen and after thorough examination acute appendicitis was ruled out. there was no indication for surgical intervention as per his recommendations. She was found to have elevated bilirubin CT of the abdomen and pelvis did not demonstrate any acute on chronic abnormality in the biliary tree nor the liver. Abdominal ultrasound was obtained which was negative for any evidence of choledocholithiasis. Patient hepatitis panel was positive for hepatitis B core antibody and this was discussed with the patient. Hepatitis B core antibody IgM is still pending Patient was clear as per gastroenterology standpoint to be discharged on 2016 and this was discussed with the night hospitalist although they deferred to discharge the following day. Patient has been able to tolerate his p.o. intake without any difficulty he is clear as per surgical and gastroenterology standpoint to be discharged home with a close follow-up with his primary care physician as outpatient Hospital Course 31-year-old anxious male hospitalized after presenting to the emergency room with significant lower abdominal pain and findings of a enlarged and thickened appendix on CT. Patient was evaluated by Dr. Bonner from the surgical point of view and given the fact that his clinical picture did not fit acute appendicitis no surgery was undertaken. The patient reports that his abdominal pain has completely subsided. A CT and ultrasound also disclose evidence of small gallbladder polyps he is also been found to have slight abnormality liver function test with bilirubin of 1.2 of which all is indirect bilirubin. AST ALT were in the 100 range and have come down slightly. The patient denies risk factors for hepatitis but he is hepatitis serology was positive for hepatitis B core antibody unfortunately IgM antibody has not been assessed. Patient also admits to drinking on a weekly basis several shots of tequila or vodka and also beer throughout the week. At present the patient is comfortable intubating he wishes to go home tonight. I have advised him to complete the blood work which will required further drawing for hepatitis B core IgM antibody and he will also need to set up an appointment with the physician in the outside to be responsible to follow this and I have strongly advised him to discontinue alcohol completely until the situation is clarified. Home Meds Active Scripts Cephalexin* (Cephalexin*) 500 Mg Capsule, 500 MG PO Q8, #15 CAP Prov:HOLGER LASSITER MD 02/19/17 Famotidine* (Famotidine*) 20 Mg Tablet, 20 MG PO DAILY, #20 TAB Prov:HOLGER LASSITER MD 02/19/17 Follow-up Plan Follow with general purchasing agent as outpatient for results of hepatitis B panel Primary Care Provider Care Physician No Primary Time spent on discharge: > 30 minutes Pending Labs Hepatitis B IgM HOLGER LSASITER MD Feb 20, 2017 12:27
[2017-02-20 12:44] LABS: ADD UMIC YES; UR ASCORBIC ACID NEGATIVE (NEGATIVE); UR BILIRUBIN (Dip) NEGATIVE (NEGATIVE); UR BLOOD (Dip) 1+ mg/dL (NEGATIVE); UR CLARITY CLEAR (CLEAR); UR COLOR YELLOW (YELLOW); UR GLUCOSE (Dip) NEGATIVE (NEGATIVE); UR KETONES (Dip) NEGATIVE (NEGATIVE); UR LEUKOCYTE ESTERASE (Dip) NEGATIVE Leu/ul (NEGATIVE); UR NITRITE (Dip) NEGATIVE (NEGATIVE); UR RBC 1 /HPF (0-5); UR SPECIFIC GRAVITY (Dip) 1.019 (1.003-1.030); UR TOTAL PROTEIN (Dip) NEGATIVE (NEGATIVE); UR UROBILINOGEN (Dip) NEGATIVE (NEGATIVE)
[2017-02-20 13:34] LABS: ALBUMIN 5.2 g/dl (3.3-4.9); BILIRUBIN,INDIRECT 0.7 mg/dl (0-1.1); BILIRUBIN,TOTAL 0.7 mg/dl (0.2-1.3); TOTAL PROTEIN 8.3 g/dl (6.1-8.1)
== END 2017-02-20 14:25 | disposition home or self-care (01) | DRG 392 ==
LOC: E/R 00:42 → SDS 06:09 → MS1 06:10
PROVIDERS: ADMIT Transplant Surgery; ATTEND Hospitalist
DX: R10.11 Right upper quadrant pain (principal); E80.6 Other disorders of bilirubin metabolism; K40.20 Bilateral inguinal hernia, without obstruction or gangrene, not specified as recurrent; K38.9 Disease of appendix, unspecified; K82.4 Cholesterolosis of gallbladder; R79.89 Other specified abnormal findings of blood chemistry; R82.90 Unspecified abnormal findings in urine; F17.200 Nicotine dependence, unspecified, uncomplicated
CPT/HCPCS: 36415; 74010; 74176; 76700; 80053; 80076; 81001; 81003; 83690; 84443; 85025; 85610; 85651; 85730; 86704; 86709; 86803; 87040; 87086; 87340; 96374; 96375; 96376; J2270; J2405; J2543; J7030; J7121